=== PATIENT | male | born 1955 | race Caucasian/White ===

== ENCOUNTER 2024-04-06 01:23 | Observation (INO) | payer MEDICARE, OTHER ==
[2024-04-06] MEDS ORDERED: methylPREDNISolone Sod Succ 125 MG in Sodium Chloride 0.9% 250 ML IV ONE (02:28)
[2024-04-06] MEDS: methylPREDNISolone Sodium Succinate 125 MG/2 ML SDV IVPUSH ONE ×2 (02:53→19:09)
[2024-04-06] MEDS: diphenhydrAMINE 50 MG/ML SDV IVPUSH ONE ×2 (02:54→19:09)
[2024-04-06] MEDS: Famotidine 20 MG/2 ML SDV IVPUSH ONE ×2 (02:54→19:07)
[2024-04-06] MEDS: Sodium Chloride 0.9% 500 ML IV ONE (02:55)
[2024-04-06 02:58] LABS: BASOPHILS PERCENT AUTO 0.3 % (0.0-1.0); EOSINOPHILS ABSOLUTE AUTO 0.1 K/mm3 (0.0-0.4); EOSINOPHILS PERCENT AUTO 1.1 % (0.0-6.0); HEMOGLOBIN 13.7 gm/dl (14.0-18.0); IMMATURE GRAN ABSOLUTE AUTO 0.05 K/mm3 (0.00-0.05); IMMATURE GRAN PERCENT AUTO 0.6 % (0.0-0.4); LYMPHOCYTES ABSOLUTE AUTO 1.1 K/mm3 (1.0-4.8); LYMPHOCYTES PERCENT AUTO 11.9 % (24.0-44.0); MEAN CORPUSCULAR HEMOGLOBIN 30.4 pg (28.0-32.0); MEAN CORPUSCULAR HGB CONC 33.4 g/dl (32.0-36.0); MEAN CORPUSCULAR VOLUME 91.1 fl (83.0-99.0); MEAN PLATELET VOLUME 9.7 fl (9.4-12.4); MONOCYTES ABSOLUTE AUTO 0.7 K/mm3 (0.0-0.8); MONOCYTES PERCENT AUTO 7.9 % (0.0-8.0); NEUTROPHILS PERCENT AUTO 78.2 % (41.0-71.0); PLATELET COUNT,PLT 157 K/mm3 (150-400)
[2024-04-06 03:05] LABS: A/G RATIO 1.1 (1-2); ANION GAP 14.3 (5-15); BILIRUBIN TOTAL 0.7 mg/dL (0.2-1.0); BUN/CREATININE RATIO 17.2 (14-18); CALCIUM 9.4 mg/dL (8.5-10.1); CREATININE 3.2 mg/dL (0.7-1.3); EST CRCL DRUG DOSING (CG) 20.08 mL/min; POTASSIUM,K 4.3 mEq/L (3.5-5.1); PROTEIN TOTAL,TP 7.8 g/dl (6.4-8.2)
[2024-04-06] MEDS: Sodium Chloride 0.9% 1,000 ML IV ONE (03:58)
[2024-04-06 04:04] LABS: CREATINE KINASE,CK 437 U/L (39-308); LACTIC ACID 0.8 mmol/L (0.4-2.0); TROPONIN I HIGH SENSITIVITY 23 pg/mL (<=76)
[2024-04-06 05:31] LABS: ANION GAP 13.8 (5-15); BUN/CREATININE RATIO 17.9 (14-18); CALCIUM 8.5 mg/dL (8.5-10.1); CREATININE 2.9 mg/dL (0.7-1.3); EST CRCL DRUG DOSING (CG) 22.16 mL/min; POTASSIUM,K 4.8 mEq/L (3.5-5.1)
[2024-04-06] MEDS: Sodium Chloride 0.9% 1,000 ML IV SCH (07:05)
[2024-04-06] MEDS ORDERED: Labetalol 100 MG/20 ML MDV IVPUSH PRN (09:45)
[2024-04-06] MEDS ORDERED: hydrALAZINE 20 MG/ML SDV IVPUSH PRN (09:45)
[2024-04-06] MEDS ORDERED: Ondansetron 4 MG/2 ML SDV IV PRN (09:46)
[2024-04-06] MEDS ORDERED: Morphine 2 MG/ML SYRINGE IVPUSH PRN (09:46)
[2024-04-06] MEDS ORDERED: oxyCODONE 5 MG Tab PO PRN (09:46)
[2024-04-06] MEDS ORDERED: Sennosides/Docusate Sodium 50-8.6 MG Tab PO PRN (09:46)
[2024-04-06] MEDS ORDERED: Acetaminophen 325 MG Tab PO PRN (09:46)
[2024-04-06] MEDS ORDERED: Melatonin 3 MG Tab PO PRN (09:46)
[2024-04-06] MEDS: Fish Oil/Omega-3 Fatty Acids 1 Gm Cap PO SCH (11:05)
[2024-04-06] MEDS: Famotidine 20 MG Tab PO SCH (11:05)
[2024-04-06] MEDS: Calcitriol 0.25 MCG Cap PO SCH (11:05)
[2024-04-06] MEDS: Empagliflozin 25 MG Tab PO SCH (11:06)
[2024-04-06] MEDS: Heparin Sodium 5,000 Units/ML Vial SUBCUT SCH (11:06)
[2024-04-06] MEDS: Allopurinol 100 MG Tab PO SCH (11:06)
[2024-04-06] MEDS: Aspirin 81 MG Tab.EC PO SCH (11:06)
[2024-04-06] MEDS: Sodium Bicarbonate 650 MG Tab PO SCH (14:54)
[2024-04-07] MEDS: diphenhydrAMINE 50 MG/ML SDV IVPUSH ONE (00:38)
[2024-04-07 05:44] LABS: ANION GAP 12.8 (5-15); BUN/CREATININE RATIO 21.2 (14-18); CALCIUM 8.5 mg/dL (8.5-10.1); CREATININE 2.5 mg/dL (0.7-1.3); EST CRCL DRUG DOSING (CG) 25.71 mL/min; POTASSIUM,K 4.8 mEq/L (3.5-5.1)
[2024-04-10 16:46] LABS: 5-HIAA,URN,RATIO TO CRT 3 mg/gCR (0-14); CREATININE,URN PER VOL 66 mg/dL; TIME Random hr; TOTAL VOLUME Random mL
[2024-04-11 12:47] LABS: SEROTONIN 64 ng/mL (50-220)
== END 2024-04-07 13:31 | disposition home or self-care (01) ==
LOC: JD.ED 01:23 → JD.MS 06:28
PROVIDERS: ADMIT Student in an Organized Health Care Education/Training Program; ATTEND Student in an Organized Health Care Education/Training Program
DX: N17.9 Acute kidney failure, unspecified (principal); M62.82 Rhabdomyolysis; I12.9 Hypertensive chronic kidney disease with stage 1 through stage 4 chronic kidney disease, or unspecified chronic kidney disease; E11.22 Type 2 diabetes mellitus with diabetic chronic kidney disease; N18.9 Chronic kidney disease, unspecified; E78.00 Pure hypercholesterolemia, unspecified; K21.9 Gastro-esophageal reflux disease without esophagitis; Z88.8 Allergy status to other drugs, medicaments and biological substances; Z79.82 Long term (current) use of aspirin; Z79.899 Other long term (current) drug therapy; Z79.4 Long term (current) use of insulin; Z87.891 Personal history of nicotine dependence
CPT/HCPCS: 36415; 80048; 80053; 82550; 83497; 83605; 84260; 84484; 85025; 94760; 96361; 96372; 96374; 96375; 96376; 99284; A9270; G0378; J1200; J1644; J2919; J3490; J7030; 99222; 99239; 99285